=== PATIENT | female | born 1960 | race Caucasian/White ===

== ENCOUNTER → 2022-12-05 | Outpatient (CLI) | payer OTHER ==
[~2022-12-05] MED LIST: HYDR1TAB PO; SCP1.5TD TOP
--- NOTE | 2022-12-05 14:17 | Diagnostic Imaging Report ---
INDICATION: 3-D screening mammogram There is no previous study available for direct comparison. There is moderately dense breast parenchyma, bilaterally. Benign calcifications are seen in both breasts. There is no evidence of new dominant mass or suspicious calcification. IMPRESSION: Category 2, benign findings. Continued physical examination and annual mammographic followup are recommended. Dictated by: Dictated on workstation # [id number]
== END ==
LOC: RAD 10:02
PROVIDERS: ATTEND Internal Medicine
DX: Z12.31 Encounter for screening mammogram for malignant neoplasm of breast (principal)
CPT/HCPCS: 77063; 77067